=== PATIENT | female | born 1980 | race African-American/Black ===

== ENCOUNTER 2016-08-23 07:55 | Emergency (ER) | payer MEDICAID ==
[2016-08-23] MEDS ORDERED: ONDANSETRON 4 MG VIAL ONE (08:26)
[2016-08-23] MEDS ORDERED: SODIUM CHLORIDE 0.9% 1,000 ML ONE (08:26)
[2016-08-23] MEDS ORDERED: DILAUDID 1 MG/ML AMP ONE (08:49)
== END 2016-08-23 12:26 | disposition home or self-care (01) ==
LOC: ER 07:55
DX: R11.2 Nausea with vomiting, unspecified (principal); R19.7 Diarrhea, unspecified; R10.32 Left lower quadrant pain; I10 Essential (primary) hypertension; F17.200 Nicotine dependence, unspecified, uncomplicated; G47.30 Sleep apnea, unspecified
CPT/HCPCS: 36415; 74022; 80053; 81003; 82947; 83690; 84703; 85025; 96361; 96374; 96375